=== PATIENT | male | born 1965 | race Caucasian/White ===

== ENCOUNTER 2017-04-30 18:17 | Emergency (ER) | payer BC ==
[2017-04-30] MEDS ORDERED: ORPHENADRINE CITRATE 30 MG/ML VIAL IM ONE (18:42)
[2017-04-30] MEDS ORDERED: KETOROLAC TROMETHAMINE 30 MG/ML VIAL IM ONE (18:43)
[2017-04-30] MEDS ORDERED: ORPHENADRINE CITRATE 30 MG/ML VIAL ONE (18:45)
[2017-04-30] MEDS ORDERED: KETOROLAC TROMETHAMINE 30 MG/ML VIAL ONE (18:45)
[2017-04-30 18:51] LABS: Urine Appearance Clear; Urine Color Yellow
[2017-04-30 18:52] LABS: Urine Bilirubin Negative (NEGATIVE); Urine Blood 10 /ul (NEGATIVE); Urine Ketone Negative (NEGATIVE); Urine Nitrite Negative (NEGATIVE); Urine Protein Negative (NEGATIVE); Urine Urobilinogen Normal (NORMAL)
[2017-04-30 18:53] LABS: Urine Bacteria None Seen; Urine RBC 0-5 /hpf (0-5); Urine WBC 0-5 /hpf (0-5)
--- NOTE | 2017-04-30 19:12 | ERNOTE ---
Back Pain ER HPI Date of Service: 04/30/17 Presenting Symptoms: injury/pain to back Time Seen by Provider: 04/30/17 18:29 Source: patient Exam Limitations: no limitations Immunizations: IMMUNIZATION HX Immunizations Up to Date Yes History of Influenza Vaccine No Hx Pneumococcal Vaccination No Allergies/Adverse Reactions: Allergies No Known Drug Allergies Allergy (Verified 04/30/17 18:28) Home Medications: HOME MEDICATIONS ALPRAZolam [Xanax] 0.5 mg PO TID PRN 04/30/17 [Last Taken 04/30/17 17:45] oxyCODONE HCL/ACETAMINOPHEN [Percocet 5 MG/325 MG] 1 tab PO Q4H PRN #20 tab [Last Taken Unknown] Narrative: Pt. comes in with c/o R mid back pain after he woke up from a nap earlier today. Pt. was chopping wood this morning and is wondering iof he pulled something although he did not have pain after this. Pt. denies any numbness, tingling, SOB, CP, NVD, fever,or dysuria. Pt. took 400mg of Ibuprofen x 2 today without relief. Pt. states taht movement exacerbates the pain. Timing: Reports: constant Quality/Severity: Reports: moderate Location of pain: Reports: mid back Activities at Onset: Reports: sleep Possible Precipitating Factor: Reports: turning/bending Modifying Factors - (Improves): Reports: nothing Modifying Factors - (Worsens): Reports: upright position, movement to right, movement to left, movement flexion Associated Symptoms: Denies: fever/chills, sweating, constipation/incontinence, nausea/vomiting, problems urinating, difficulty walking, lightheadedness, numbess/weakness in legs Prior Treament: Denies: recently seen, treated by physician, recently hospitalized, similar symptoms before, currently on antibiotics Review of Systems - Review of Systems Constitutional: Present: no symptoms reported. Absent: recent illness, fever, chills, weakness, fatigue, malaise EYE: Present: no symptoms reported ENT: Present: no symptoms reported. Absent: ear discharge, nose congestion, nasal drainage, sore throat Respiratory: Present: no symptoms reported. Absent: shortness of breath, cough , wheezing Cardiology: Present: no symptoms reported. Absent: chest pain, palpitations, edema Gastrointestinal/Abdominal: Present: no symptoms reported. Absent: nausea, vomiting, diarrhea Genitourinary: Present: no symptoms reported. Absent: frequency, decreased urinary output Musculoskeletal: Present: back pain - R upper back Skin: Present: no symptoms reported. Absent: rash, change in color Neurological: Present: no symptoms reported. Absent: headache, dizziness/light- headedness, numbness, tingling All Other Systems: All systems neg except as marked - Patient's Past Medical History Patient History - Medical: Other Patient History - Cardiac/Respiratory: No pertinent hx Patient History - Cancer: No Hx of Cancer Patient History - Surgical Procedures: Vasectomy, Orthopedic Patient History - Other: None - Social History Living Situations: home Psych History: No pertinent hx Smoking Status: Current every day smoker Alcohol Use: none Drug Use: none - Immunizations Immunizations Up to Date: Yes Hx Pneumococcal Vaccination: No History of Influenza Vaccine: No Physical Exam - Physical Exam General Appearance: Present: wd/wn, alert, no apparent distress Head Exam: Present: normal inspection, no evidence of injury Eye Exam: Normal inspection: bilateral Neck: Present: normal inspection, nontender, supple, full range of motion Respiratory: Present: no respiratory distress, normal breath sounds, no accessory muscle use, chest nontender, lungs clear Cardiovascular/Chest: Present: regular rate, rhythm, no murmur, normal peripheral pulses Gastrointestinal/Abdominal: Present: normal bowel sounds, nontender, nondistended, soft, no organomegaly Back Exam: Present: normal range of motion, no CVA tenderness, no vertebral tenderness, muscle spasm - R thoracic paraspinous T 6-10 Neurological Exam: Present: alert, oriented, normal mood/affect, no motor/ sensory deficits Skin Exam: Present: normal color, warm/dry. Absent: pallor, skin rash ED Progress - Date and Time Seen: Date and Time: 04/30/17 19:[address] Galdamez and although pt. has degeneration in back he recommends obtaining CT scan to look for renal stone as pt. has blood in urine - Results and Orders Patient's Lab Results:: I have reviewed the patient's lab results. - Vital Signs Patient's Vital Signs:: I have reviewed the patient's vital signs. Vital Signs: Vital Signs 04/30/17 18:24 Temperature 36.0 C L Pulse Rate 61 Respiratory 18 Rate Blood Pressure 138/89 O2 Sat by Pulse 99 Oximetry - X-Ray X-Ray #1 X-Ray: thoracic Interpretation: Interp. by me X-ray Comments: degenerative changes throughout his thoracic spine no acute fractures - CT/Ultrasound CT/Ultrasound Narrative: CT stone protocol negative - Progress/Reassessment Chief Complaint: Back Pain Progress:: Unchanged Departure Clinical Impression: Spasm of thoracic back muscle Thoracic myofascial strain Qualifiers: Encounter type: initial encounter Qualified Code(s): S29.019A - Strain of muscle and tendon of unspecified wall of thorax, initial encounter - Departure Disposition: Home self-care Condition: Good Instructions: Muscle Cramps and Spasms, [id number], Thoracic Strain, Easy-to- Read Additional Instructions: Please follow up with primary provider if not improved in 1-2 days. Please rest until pain relieved and may use heat on back to help with pain. Referrals: Anisha Young MD [Primary Care Provider] - Prescriptions: oxyCODONE HCL/ACETAMINOPHEN [Percocet 5 MG/325 MG] 1 tab PO Q4H PRN #20 tab PRN Reason: Pain
[2017-04-30] MEDS ORDERED: MORPHINE SULFATE 4 MG/ML SYRG IM ONE (19:28)
[2017-04-30] MEDS ORDERED: MORPHINE SULFATE 4 MG/ML SYRG ONE (19:31)
[2017-04-30 20:15] LABS: Hematocrit 44.6 % (42.0-52.0); Hemoglobin 15.5 gm/dL (13.5-18.0); Mean Cell Volume 95.9 fl (78-100); Mean Corpuscular Hemoglobin 33.3 pg (27-31); Mean Corpuscular Hgb Conc 34.8 g/dl (32-36); Mean Platelet Volume 10.3 fl (6.0-9.5); Neutrophil # 5.8 K/mm3 (1.3-6.0); Neutrophil % 70.2 % (42-75.0); Platelet Count 195 K/mm3 (150-450); Red Blood Count 4.65 M/mm3 (4.7-6.0); Red Cell Distribution Width 12.9 % (11.5-14.0); White Blood Count 8.2 K/mm3 (4.0-10.5)
[2017-04-30] MEDS ORDERED: LIDOCAINE 1 PATCH ADH..PATCH TP ONE (20:30)
[2017-04-30 20:32] LABS: ALT 32 U/L (19-67); AST 16 U/L (0-48); Albumin * 3.7 gm/dl (3.4-5.0); Alkaline Phosphatase * 62 U/L (50-170); Anion Gap 12.6 mmol/L (6.8-13.8); BUN/Creatinine Ratio 14.7 (9.0-21.6); Bilirubin, Total 0.3 mg/dL (0.0-1.1); Blood Urea Nitrogen 16 mg/dL (6-23); Ca. Corrected For Albumin 8.5 mg/dL (8.4-10.2); Calcium * 8.6 mg/dL (7.9-10.9); Carbon Dioxide 26.7 mmol/L (24-32.6); Chloride 103 mmol/L (97-106); Glucose * 94 mg/dL (70-110); Potassium 4.3 mmol/L (3.4-4.6); Sodium 138 mmol/L (132-142); Total Protein 7.5 gm/dL (6.2-8.2)
[2017-04-30 20:34] LABS: Troponin I Less than 0.017 ng/ml (0.00-0.10)
[2017-04-30] MEDS ORDERED: HYDROmorphone HCL 1 MG/ML DISP.SYRIN IM ONE (21:02)
[2017-04-30 21:10] VITALS: BP 135/64
[2017-04-30] MEDS ORDERED: HYDROmorphone HCL 1 MG/ML DISP.SYRIN ONE (21:26)
== END 2017-04-30 22:14 | disposition home or self-care (01) ==
LOC: ER 18:17
DX: F17.200 Nicotine dependence, unspecified, uncomplicated (principal)
CPT/HCPCS: 36415; 72072; 74176; 80053; 81001; 84484; 85025; 85379; 96372; 99285